=== PATIENT | male | born 1955 | race Caucasian/White ===

== ENCOUNTER → 2017-10-19 16:11 | Outpatient (CLI) | payer BC | END | disposition home or self-care (01) | LOC: D.MRI 16:11 | DX: M25.511 Pain in right shoulder (principal); M25.512 Pain in left shoulder ==

== ENCOUNTER 2018-03-05 08:00 | Outpatient (CLI) | payer BC ==
[2018-03-02 10:29] LABS: HEMOGLOBIN 14.7 g/dL (13.5-17.5); MCH 27.5 pg (26.0-34.0); MCHC 33.4 g/dL (31.0-37.0); MCV 82.2 fL (80.0-100.0); MEAN PLATELET VOLUME 10.4 fL (7.4-10.4); RBC 5.35 10x6/uL (4.20-6.10); RDW 13.2 % (11.5-14.5); WBC 8.3 10x3/uL (4.8-10.8)
[2018-03-02 14:17] LABS: ANION GAP 16.1 mmol/L (8-16); CALCIUM 8.9 mg/dL (8.5-10.1); CARBON DIOXIDE 26.6 mmol/L (21.0-32.0); CREATININE - SERUM 1.3 mg/dL (0.6-1.3); POTASSIUM - SERUM 4.7 mmol/L (3.5-5.1)
[~2018-03-05] VITALS: Ht 177.8 cm; Wt 126.1 kg
[2018-03-05 07:35] VITALS: BP 106/68; Ht 177.8 cm; Wt 126.1 kg
--- NOTE | 2018-03-05 07:46 | NUR ---
PT STATES THAT HE LAST TOOK PLAVIX YESTERDAY MORNING ABOUT 0700/0730. SPOKE TO DR. COMBS AND INFORMED HIM WHEN THE PT LAST TOOK HIS PLAVIX. HE SAID THAT WE WILL HAVE TO CANCEL HIS PROCEDURE. WILL CALL HIS OFFICE TO RESCHEDULE.
--- NOTE | 2018-03-05 07:51 | NUR ---
DR. COMBS SPEAKING TO PT NOW. TEACHING REGARDING PLAVIX AND HIS PROCEDURE IS OCCURRING.
[~2018-03-05 08:00] MED LIST: CATAPRES0.1 MG PO; LASIX20 MG PO; NORVASC5 MG PO; PLAVIX75 MG PO; ZESTRIL40 MG PO
--- NOTE | 2018-03-05 08:02 | NUR ---
PER DR. COMBS, HIS OFFICE WILL CALL PT TO RESCHEDULE PROCEDURE.
--- NOTE | 2018-03-05 08:21 | NUR ---
PT LEFT UNIT AT 0810
== END 2018-03-05 08:01 | disposition home or self-care (01) ==
LOC: D.OPS 08:00 → D.PAN 13:55 → D.OPS 16:00 → D.PAN 16:00 → EDSTATUS 16:00
PROVIDERS: Anesthesiology
DX: M75.41 Impingement syndrome of right shoulder (principal); Z01.812 Encounter for preprocedural laboratory examination; Z53.9 Procedure and treatment not carried out, unspecified reason

== ENCOUNTER 2018-03-12 11:13 | Day surgery (SDC) | payer BC ==
[~2018-03-12] VITALS: Ht 177.8 cm; Wt 126.1 kg
[2018-03-12 12:05] LABS: HEMATOCRIT 40.6 % (42.0-54.0); HEMOGLOBIN 13.6 g/dL (13.5-17.5); MCH 27.3 pg (26.0-34.0); MCHC 33.5 g/dL (31.0-37.0); MCV 81.4 fL (80.0-100.0); MEAN PLATELET VOLUME 10.4 fL (7.4-10.4); RBC 4.99 10x6/uL (4.20-6.10); RDW 13.4 % (11.5-14.5); WBC 10.3 10x3/uL (4.8-10.8)
[2018-03-12] MEDS ORDERED: PRAVACHOL20 MG PO (12:38)
[2018-03-12 12:41] VITALS: BP 143/78; Ht 177.8 cm; Wt 126.1 kg
[2018-03-12] MEDS ORDERED: HYDROCODON-ACE1 EA10 PO (16:29)
--- NOTE | 2018-03-15 13:37 | OP ---
PATIENT NAME: SAMMI LOPEZ MEDICAL RECORD: [id number] :57 LOCATION:D.OPS ADMISSION DATE: SURGEON: JOSE L COMBS MD DATE OF OPERATION: 03/12/2018 PREOPERATIVE DIAGNOSES: Right shoulder impingement syndrome and severe biceps tendinitis. PREOPERATIVE DIAGNOSES: Right shoulder impingement syndrome and severe biceps tendinitis. PROCEDURES: 1. Arthroscopic biceps tenotomy of the right shoulder. 2. Arthroscopic distal clavicle excision under separate incision. 3. Arthroscopic subacromial decompression with acromioplasty and bursectomy. SURGEON: Jose L Combs MD INCIDENT RESPONSE LEAD: RIKA Corbin INTRAOPERATIVE COMPLICATIONS: None. SUMMARY OF PATHOLOGIC FINDINGS: Consistent with preoperative diagnosis. The patient had the above-mentioned findings. OPERATIVE SUMMARY IN DETAIL: After obtaining the appropriate preoperative orthopedic surgery consent as well as anesthetic consultation, evaluation, and clearance, the patient was brought to the operating room and placed on the operating table in the supine position. After general laryngeal mask airway was administered, the patient was placed in left lateral decubitus position. All pressure points were well padded to include down leg peroneal pad as well as axillary roll. The patient was held firmly to the operating table using the vacuum pack suction system. Right upper extremity and shoulder were then prepped and draped in routine sterile fashion. Arm was held in the Arthrex traction boom in 30 degrees of forward flexion, 30 degrees of abduction, and 10 pounds of traction laterally. Arthroscopy was established in the glenohumeral joint from the posterior portal. Anterior portal was established from the anterior safe interval. Diagnostic arthroscopy did reveal the patient to have severe biceps tendinitis through the anterior portal. [place] tissue ablation system was utilized to release the biceps tendon at the bicipital labral junction. The patient did have some labral tearing. Having completed this, attention was turned to the subacromial space. No full-thickness rotator cuff tearing was noted. Attention was then turned to the decompression. [place] tissue ablation system was utilized to denude the undersurface of the acromion of all soft tissue elements and release the coracoacromial ligament. A 5-0 barrel bur was then used to perform acromioplasty at the level of acromioclavicular joint. At this point, through a separate arthroscopic anterior portal under direct arthroscopic visualization, distal clavicle was excised for 1 cm. Having completed this, arthroscopy portals were closed in routine interrupted fashion using 4-0 Prolene. Sterile dressings were applied. The patient was awakened and taken to recovery room in stable condition. All final needle and sponge counts were correct. TRANSINT:[id number] Voice Confirmation ID: [id number] DOCUMENT ID: [id number] OPERATIVE REPORT [id number] SAMMI LOPEZ MD, JOSE L FIGUEROA at 1337 CC: [id number] DICTATION DATE: 03/14/18 1400 CLEATER: 03/14/18 1720 [facility] [place] 03/12/18 [facility] [address] [place] [address]
== END 2018-03-12 18:25 | disposition home or self-care (01) ==
LOC: D.OPS 11:13 → D.PAN 13:45 → D.OPS 15:15
PROVIDERS: Anesthesiology
DX: M75.41 Impingement syndrome of right shoulder (principal); M75.21 Bicipital tendinitis, right shoulder

== ENCOUNTER 2018-05-21 10:15 | Day surgery (SDC) | payer BC ==
[2018-05-18 09:48] LABS: HEMATOCRIT 37.6 % (42.0-54.0); HEMOGLOBIN 11.9 g/dL (13.5-17.5); MCHC 31.6 g/dL (31.0-37.0); MCV 82.3 fL (80.0-100.0); MEAN PLATELET VOLUME 9.9 fL (7.4-10.4); RBC 4.57 10x6/uL (4.20-6.10); RDW 13.7 % (11.5-14.5); WBC 10.9 10x3/uL (4.8-10.8)
[2018-05-18 09:51] LABS: ANION GAP 13.1 mmol/L (8-16); CALCIUM 9.2 mg/dL (8.5-10.1); CARBON DIOXIDE 26.4 mmol/L (21.0-32.0); CREATININE - SERUM 1.3 mg/dL (0.6-1.3); POTASSIUM - SERUM 4.5 mmol/L (3.5-5.1)
[~2018-05-21 10:15] MED LIST changes: +HYDROCODON-ACE1 EA10 PO; +PRAVACHOL20 MG PO
[2018-05-21 10:48] VITALS: BP 164/71; BMI 39.9
[2018-05-21] MEDS ORDERED: HYDROCODON-ACE1 EA10 PO (13:06)
--- NOTE | 2018-05-22 14:15 | OP ---
PATIENT NAME: SAMMI LOPEZ MEDICAL RECORD: [id number] :57 LOCATION:D.OPS ADMISSION DATE: SURGEON: JOSE L COMBS MD DATE OF OPERATION: 05/21/2018 PREOPERATIVE DIAGNOSES: 1. Medial meniscus tear of the right knee. 2. Lateral meniscus tear of the right knee. POSTOPERATIVE DIAGNOSES: 1. Lateral meniscus tear of the right knee. 2. Substantial synovitis of the right knee. 3. 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 PROCEDURES: 1. Arthroscopic partial lateral meniscectomy. 2. Arthroscopic synovectomy. SURGEON: Jose L Combs MD ANESTHESIA: General. INTRAOPERATIVE COMPLICATIONS: None. SUMMARY OF PATHOLOGIC FINDINGS: Substantial synovitis as well as a complex tear of the posterior horn of the lateral meniscus. The medial meniscus was relatively in good overall shape. There was indeed some chondromalacia of the medial femoral condyle; however, worse on the lateral side. OPERATIVE SUMMARY IN DETAIL: After obtaining the appropriate preoperative orthopedic surgery consent as well as anesthetic consultation, evaluation, and clearance, the patient was brought to the operating room and placed on the operating table in the supine position. After general laryngeal mask was administered, tourniquet was placed about the proximal aspect of the right lower extremity. The right lower extremity was then prepped and draped in routine sterile fashion. The leg was elevated, exsanguinated, and the tourniquet was inflated to 350 mmHg. Routine inferolateral portal was established followed by superomedial portal and inferomedial portal. Diagnostic arthroscopy reveal the above findings. Attention was turned to the lateral meniscus. Combination of meniscotome as well as the arthroscopic resector were utilized to debride the lateral meniscus back to stable meniscal elements. A small area of chondral flap was debrided and treated with chondroplasty of the area of the lateral femoral condylar chondromalacia. Next, the medial and lateral gutters, along with the suprapopliteal recess were completed with complete synovectomy. Having completed this, the knee was insufflated with 80 mg of Depo-Medrol and 30 mL of 0.25% Marcaine plain. Arthroscopy portals were closed in routine interrupted fashion using 4-0 Prolene. Sterile dressings were applied. Tourniquet was deflated. The patient was awakened and taken to the recovery room in stable condition. All final needle and sponge counts were correct. TRANSINT:[id number] Voice Confirmation ID: [id number] DOCUMENT ID: [id number] OPERATIVE REPORT [id number] SAMMI LOPEZ MD, JOSE L FIGUEROA at 1415 CC: [id number] DICTATION DATE: 05/21/18 1309 CLAM BED WORKER: 05/21/182118 [facility] 05/21/18 [place] [id number] [place] [id number]
== END 2018-05-21 15:20 | disposition home or self-care (01) ==
LOC: D.OPS 10:15
PROVIDERS: Anesthesiology
DX: S83.271A Complex tear of lateral meniscus, current injury, right knee, initial encounter (principal); M94.261 Chondromalacia, right knee; M65.861 Other synovitis and tenosynovitis, right lower leg; Z01.812 Encounter for preprocedural laboratory examination

== ENCOUNTER 2018-07-16 09:30 | Day surgery (SDC) | payer BC ==
[2018-07-13 09:25] LABS: HEMATOCRIT 39.8 % (42.0-54.0); MCH 25.9 pg (26.0-34.0); MCHC 32.7 g/dL (31.0-37.0); MCV 79.3 fL (80.0-100.0); MEAN PLATELET VOLUME 9.8 fL (7.4-10.4); RBC 5.02 10x6/uL (4.20-6.10); RDW 13.9 % (11.5-14.5); WBC 11.5 10x3/uL (4.8-10.8)
[2018-07-13 09:33] LABS: ANION GAP 12.3 mmol/L (8-16); CALCIUM 9.8 mg/dL (8.5-10.1); CARBON DIOXIDE 28.5 mmol/L (21.0-32.0); CREATININE - SERUM 1.1 mg/dL (0.6-1.3); POTASSIUM - SERUM 4.8 mmol/L (3.5-5.1)
[~2018-07-16] VITALS: Ht 177.8 cm; Wt 126.1 kg
[~2018-07-16 09:30] MED LIST changes: +HYDROXYCHLOROQUINE PO; +LISINOPRIL40 MG PO
[2018-07-16] MEDS ORDERED: GLUCOPHAGE1000 MG PO (11:47)
[2018-07-16] MEDS ORDERED: LASIX20 MG PO (11:48)
[2018-07-16] MEDS ORDERED: ULTRAM50 MG PO (11:49)
[2018-07-16 11:56] VITALS: BP 132/80; Ht 177.8 cm; Wt 126.1 kg
[2018-07-16] MEDS ORDERED: HYDROCODON-ACE1 EA10 PO (13:34)
--- NOTE | 2018-07-16 19:06 | NUR ---
1500 IV REMOVED DRESSING APPLIED
--- NOTE | 2018-07-19 11:34 | OP ---
PATIENT NAME: SAMMI LOPEZ MEDICAL RECORD: [id number] :57 LOCATION:[facility] ADMISSION DATE: SURGEON: JOSE L COMBS MD DATE OF OPERATION: 07/16/2018 PREOPERATIVE DIAGNOSIS: Impingement syndrome of the left shoulder with biceps tendinitis. POSTOPERATIVE DIAGNOSIS: Impingement syndrome of the left shoulder with biceps tendinitis. PROCEDURES: 1. Left shoulder arthroscopy with arthroscopic biceps tenotomy. 2. Arthroscopic distal clavicle excision done through separate incision - 1 cm. 3. Arthroscopic subacromial decompression with acromioplasty and bursectomy. SURGEON: Jose L Combs MD ANESTHESIA: General. INTRAOPERATIVE COMPLICATIONS: None. SUMMARY OF PATHOLOGIC FINDINGS: Consistent with preoperative diagnosis, the patient had a near complete tear of the biceps tendon at the bicipital groove. The labrum was relatively in good overall shape. The patient had severe impingement with only partial-thickness tearing of the rotator cuff and grade IV acromioclavicular arthritis. OPERATIVE SUMMARY IN DETAIL: After obtaining the appropriate preoperative orthopedic surgery consent as well as anesthetic consultation, evaluation, and clearance, the patient was brought to the operating room and placed on the operating table in the supine position. After general laryngeal mask was administered, the patient was placed in the right lateral decubitus position. All pressure points were well padded to include down leg peroneal pad as well as axillary roll. The patient was held firmly to the operating table using the vacuum pack suction system. Left upper extremity and shoulder were then prepped and draped in routine sterile fashion. Arm was held in Arthrex traction boom at 30 degrees of forward flexion and 30 degrees of abduction with 10 pounds of traction laterally. Arthroscopy was established in the glenohumeral joint on the left side from the posterior portal. Anterior portal was established in the anterior safe interval under direct arthroscopic visualization. Findings as noted above were seen. Biceps tenotomy was performed at the bicipital labral junction. Having completed this, attention was turned to the subacromial space. While in the subacromial space, accessory lateral portal was created through which [place] tissue ablation system was utilized to denude the undersurface of the acromion of all soft tissue elements and release the coracoacromial ligament. The 5-0 barrel bur was used to perform acromioplasty at the level of acromioclavicular joint. Then, through a separate portal anteriorly, arthroscopic direct visualization was established and distal clavicle was excised for 1 cm. Having completed this, attention was turned to the subacromial bursa. The bursa was taken down superiorly, anteriorly, laterally, and posteriorly. Rotator cuff was evaluated. There were attritional changes but no full-thickness tearing was noted. Having completed this, arthroscopy portals were closed in routine interrupted fashion using 4-0 Prolene. Sterile OPERATIVE REPORT [id number] SAMMI LOPEZ dressings were applied. The patient was awakened and taken to recovery room in stable condition. All final needle and sponge counts were correct. TRANSINT:[id number] Voice Confirmation ID: [id number] DOCUMENT ID: [id number] GARRET CARDONA, JOSE L FIGUEROA at 1134 CC: [id number] DICTATION DATE: 07/18/18 1044 COLLISION MECHANIC: 07/18/18 1252 [facility] 07/16/18 [place] [id number] [place] [address]
== END 2018-07-16 15:25 | disposition home or self-care (01) ==
LOC: D.OPS 09:30
PROVIDERS: Anesthesiology; ATTEND Orthopaedic Surgery
DX: M75.42 Impingement syndrome of left shoulder (principal)

== ENCOUNTER 2018-08-26 16:26 | Emergency (ER) | payer BC ==
[~2018-08-26] VITALS: Ht 177.8 cm; Wt 125.0 kg
[~2018-08-26 16:26] MED LIST changes: +GLUCOPHAGE1000 MG PO; +ULTRAM50 MG PO
[2018-08-26 16:30] VITALS: Ht 177.8 cm; Wt 125.0 kg
[2018-08-26] MEDS ORDERED: ALDACTONE25 MG PO (16:39)
[2018-08-26] MEDS ORDERED: METHOTREXATE2.5 MG PO (16:40)
[2018-08-26] MEDS ORDERED: FOLIC ACID1 MG PO (16:41)
[2018-08-26 17:02] LABS: BASOPHILS 1.7 % (0-2); HEMATOCRIT 26.3 % (42.0-54.0); HEMOGLOBIN 8.4 g/dL (13.5-17.5); IMMATURE GRANULOCYTES 0.5 % (0-5); LYMPHOCYTES 11.6 % (15-50); MCH 25.2 pg (26.0-34.0); MCHC 31.9 g/dL (31.0-37.0); MONOCYTES 5.3 % (2-11); NEUTROPHILS 79.9 % (40-80); PLATELET COUNT 362 10x3/uL (130-400); RBC 3.33 10x6/uL (4.20-6.10); RDW 14.9 % (11.5-14.5); WBC 17.5 10x3/uL (4.8-10.8)
[2018-08-26 17:10] LABS: APTT 22.8 SECONDS (22.8-39.4); INR 1.16 (0.85-1.17); PROTIME 14.3 SECONDS (11.6-15.0)
[2018-08-26 17:27] LABS: ALKALINE PHOSPHATASE 64 U/L (46-116); ALT (SGPT) 13 U/L (10-68); BILIRUBIN - TOTAL 0.24 mg/dL (0.2-1.3); CALC OSMOLALITY 297 mosm/kg (275-300); CARBON DIOXIDE 20.3 mmol/L (21.0-32.0); CHLORIDE - SERUM 106 mmol/L (98-107); CREATININE - SERUM 1.3 mg/dL (0.6-1.3); GLUCOSE 207 mg/dL (74-106); POTASSIUM - SERUM 4.4 mmol/L (3.5-5.1); PROTEIN - SERUM 7.3 g/dL (6.4-8.2); SODIUM 141 mmol/L (136-145); UREA NITROGEN 44 mg/dL (7-18); eGFR NON AFRICAN AMERICAN 59 mL/min (90-120)
[2018-08-26 17:42] LABS: CKMB 0.8 U/L (0.0-3.6); CREATINE KINASE 40 UL (21-232); LIPASE 112 U/L (73-393)
[2018-08-26 17:44] LABS: TROPONIN-I 0.078 ng/mL (0.000-0.060)
[2018-08-26 18:35] VITALS: BP 114/65
== END 2018-08-26 18:35 | disposition other institution (70) ==
LOC: D.ER 16:26
PROVIDERS: Family Medicine
DX: K92.2 Gastrointestinal hemorrhage, unspecified (principal); D64.9 Anemia, unspecified

== ENCOUNTER → 2018-11-01 09:17 | Outpatient (CLI) | payer BC ==
[~2018-11-01] VITALS: Ht 177.8 cm; Wt 130.5 kg
[~2018-11-01 09:17] MED LIST changes: +ALDACTONE25 MG PO; +FOLIC ACID1 MG PO; +METHOTREXATE2.5 MG PO
[2018-11-01 11:40] VITALS: BP 148/85; Ht 177.8 cm; Wt 130.5 kg
== END | disposition home or self-care (01) ==
LOC: D.OPS 09:17
PROVIDERS: ATTEND Internal Medicine Hematology & Oncology
DX: D64.9 Anemia, unspecified (principal)

== ENCOUNTER 2018-11-08 09:03 | Outpatient (CLI) | payer BC ==
[~2018-11-08] VITALS: Ht 172.7 cm; Wt 130.0 kg
[2018-11-08 09:23] VITALS: Ht 172.7 cm; Wt 130.0 kg
== END 2018-11-08 11:42 | disposition home or self-care (01) ==
LOC: D.OPS 09:03
PROVIDERS: ATTEND Internal Medicine Hematology & Oncology
DX: D64.9 Anemia, unspecified (principal)

== ENCOUNTER 2018-11-15 09:07 | Outpatient (CLI) | payer BC ==
[~2018-11-15] VITALS: Ht 172.7 cm; Wt 130.0 kg
[2018-11-15 09:43] VITALS: Ht 172.7 cm; Wt 130.0 kg
--- NOTE | 2018-11-15 11:03 | NUR ---
IRON COMPLETED, IV REMOVED WITH TIP INTACT.
== END 2018-11-15 11:04 | disposition home or self-care (01) ==
LOC: D.OPS 09:07
PROVIDERS: ATTEND Internal Medicine Hematology & Oncology
DX: D64.9 Anemia, unspecified (principal)

== ENCOUNTER 2018-11-22 08:37 | Outpatient (CLI) | payer BC ==
[~2018-11-22] VITALS: Ht 172.7 cm; Wt 130.0 kg
[2018-11-22 10:27] VITALS: BP 152/81; Ht 172.7 cm; Wt 130.0 kg
== END 2018-11-22 11:20 | disposition home or self-care (01) ==
LOC: D.OPS 08:37
PROVIDERS: ATTEND Internal Medicine Hematology & Oncology
DX: D64.9 Anemia, unspecified (principal)

== ENCOUNTER 2018-11-29 08:46 | Outpatient (CLI) | payer BC ==
[~2018-11-29] VITALS: Ht 172.7 cm; Wt 130.0 kg
[2018-11-29 11:21] VITALS: BP 152/82; Ht 172.7 cm; Wt 130.0 kg
== END 2018-11-29 11:16 | disposition home or self-care (01) ==
LOC: D.OPS 08:46
PROVIDERS: ATTEND Internal Medicine Hematology & Oncology
DX: D64.9 Anemia, unspecified (principal)

== ENCOUNTER 2018-12-06 08:42 | Outpatient (CLI) | payer BC ==
[~2018-12-06] VITALS: Ht 172.7 cm; Wt 130.0 kg
[2018-12-06 09:04] VITALS: Ht 172.7 cm; Wt 130.0 kg
== END 2018-12-06 10:53 | disposition home or self-care (01) ==
LOC: D.OPS 08:42
PROVIDERS: ATTEND Internal Medicine Hematology & Oncology
DX: D64.9 Anemia, unspecified (principal)

== ENCOUNTER 2019-01-08 09:05 | Outpatient (CLI) | payer BC ==
[~2019-01-08] VITALS: Ht 172.7 cm; Wt 131.4 kg
[2019-01-08 10:55] VITALS: BP 119/56; Ht 172.7 cm; Wt 131.4 kg
== END 2019-01-08 12:05 | disposition home or self-care (01) ==
LOC: D.OPS 09:05
PROVIDERS: ATTEND Internal Medicine Hematology & Oncology
DX: D64.9 Anemia, unspecified (principal)

== ENCOUNTER → 2019-01-15 09:03 | Outpatient (CLI) | payer BC ==
[~2019-01-15] VITALS: Ht 172.7 cm; Wt 137.3 kg
[2019-01-15 09:26] VITALS: BP 136/69; Ht 172.7 cm; Wt 137.3 kg
--- NOTE | 2019-01-15 10:48 | NUR ---
IRON INFUSION COMPLETED, IV DC'D WITH TIP INTACT. DISCHARGE INSTRUCTIONS PROVIDED AND SIGNED.
== END | disposition home or self-care (01) ==
LOC: D.OPS 09:03
PROVIDERS: ATTEND Internal Medicine Hematology & Oncology
DX: D50.9 Iron deficiency anemia, unspecified (principal)

== ENCOUNTER 2019-01-22 09:22 | Outpatient (CLI) | payer BC ==
[~2019-01-22] VITALS: Ht 172.7 cm; Wt 131.4 kg
[2019-01-22 09:49] VITALS: Ht 172.7 cm; Wt 131.4 kg
--- NOTE | 2019-01-22 12:42 | NUR ---
1135 IV REMOVED AND PRESSURE HELD.
== END 2019-01-22 12:43 | disposition home or self-care (01) ==
LOC: D.OPS 09:22
PROVIDERS: ATTEND Internal Medicine Hematology & Oncology
DX: D50.9 Iron deficiency anemia, unspecified (principal)

== ENCOUNTER 2019-01-28 09:10 | Outpatient (CLI) | payer BC ==
[~2019-01-28] VITALS: Ht 177.8 cm; Wt 131.4 kg
[2019-01-28 10:52] VITALS: BP 138/63; Ht 177.8 cm; Wt 131.4 kg
--- NOTE | 2019-01-28 11:35 | NUR ---
INFUSION COMPLETE AT 1127. PT DENIES PAIN/NEEDS. PT LEFT UNIT AMBULATING AT 1134
== END 2019-01-28 11:34 | disposition home or self-care (01) ==
LOC: D.OPS 09:10
PROVIDERS: ATTEND Internal Medicine Hematology & Oncology
DX: D50.9 Iron deficiency anemia, unspecified (principal)

== ENCOUNTER 2019-02-04 11:55 | Outpatient (CLI) | payer BC ==
[~2019-02-04] VITALS: Ht 177.8 cm; Wt 131.4 kg
[2019-02-04 12:51] VITALS: BP 136/66; Ht 177.8 cm; Wt 131.4 kg
--- NOTE | 2019-02-04 13:55 | NUR ---
INFUSION COMPLETE. PT DENIES PAIN/NEEDS. PT LEFT UNIT AMBULATIN AT 1355
== END 2019-02-04 13:55 | disposition home or self-care (01) ==
LOC: D.OPS 11:55
PROVIDERS: ATTEND Internal Medicine Hematology & Oncology
DX: D50.9 Iron deficiency anemia, unspecified (principal)

== ENCOUNTER 2019-02-11 09:24 | Outpatient (CLI) | payer BC ==
[~2019-02-11] VITALS: Ht 177.8 cm; Wt 131.4 kg
[2019-02-11 09:47] VITALS: Ht 177.8 cm; Wt 131.4 kg
== END 2019-02-11 12:18 | disposition home or self-care (01) ==
LOC: D.OPS 09:24
PROVIDERS: ATTEND Internal Medicine Hematology & Oncology
DX: D50.9 Iron deficiency anemia, unspecified (principal)